=== PATIENT | female | born 1995 | race African-American/Black ===

== ENCOUNTER 2016-04-18 07:32 | Emergency (ER) | payer OTHER ==
[~2016-04-18] VITALS: Ht 167.6 cm; Wt 136.1 kg
[~2016-04-18 07:32] MED LIST: ADVIL100 M2 PO; BACTRIM DS TAB1 EACH; GLUCOPHAGE500 MG PO; HYDROCODONE-AC120 ML PO; MOBIC15 MG PO; ONDANSETRON HCL4 M2 PO; TESSALON PERLE100 MG PO
[2016-04-18] MEDS ORDERED: AFRIN15 ML NS (08:14)
[2016-05-03] MEDS ORDERED: IBUPROFEN 600600 M1 PO (14:35)
== END 2016-04-18 09:09 | disposition home or self-care (01) ==
LOC: ER 07:32
DX: J06.9 Acute upper respiratory infection, unspecified (principal); H92.01 Otalgia, right ear; E11.9 Type 2 diabetes mellitus without complications; F10.99 Alcohol use, unspecified with unspecified alcohol-induced disorder; Z98.890 Other specified postprocedural states; Z88.0 Allergy status to penicillin